=== PATIENT | female | born 1935 | race Caucasian/White ===

== ENCOUNTER 2021-01-31 23:37 | Inpatient (IN) | payer MEDICARE ==
[~2021-01-31] VITALS: Ht 165.1 cm; Wt 78.9 kg
[2021-02-01] VITALS (8 sets, daily range): BP systolic 126–159; BP diastolic 49–68
[2021-02-01] MEDS ORDERED: IV NORMAL SALINE 1000 ML BAG IV ONE (00:15)
[2021-02-01 00:18] LABS: BASOPHILS % (AUTO) 0.6 % (0.0-2.0); EOSINOPHILS # (AUTO) 0.2 K/uL (0.0-0.7); EOSINOPHILS % (AUTO) 2.7 % (0.0-7.0); HEMATOCRIT 41.9 % (31.2-41.9); HEMOGLOBIN 13.9 g/dL (10.9-14.3); LYMPHOCYTES # (AUTO) 1.2 K/uL (20.0-40.0); LYMPHOCYTES % (AUTO) 15.6 % (20.5-51.5); MEAN CORPUSCULAR HEMOGLOBIN 29.3 uug (24.7-32.8); MEAN CORPUSCULAR HGB CONC 33 g/dL (32.3-35.6); MEAN CORPUSCULAR VOLUME 88.2 fL (75.5-95.3); MONOCYTES # (AUTO) 0.6 K/uL (2.0-10.0); MONOCYTES % (AUTO) 8.6 % (0.0-11.0); NEUTROPHILS # (AUTO) 5.4 K/uL (1.8-8.9); NEUTROPHILS % (AUTO) 72.5 % (38.5-71.5); PLATELET COUNT (AUTO) 233 K/uL (179-408); RED BLOOD CELL COUNT(AUTO) 4.75 MIL/uL (3.63-4.92); WHITE BLOOD COUNT (AUTO) 7.4 K/uL (3.8-11.8)
[2021-02-01 00:57] LABS: CARBON DIOXIDE 28 mmol/L (21-32); CHLORIDE 104 mmol/L (98-107); CREATININE 1.4 mg/dL (0.6-1.3); GLUCOSE 181 mg/dL (74-106); UREA NITROGEN, BLOOD 34 mg/dL (7-18)
[2021-02-01] MEDS ORDERED: VALS80TA2 PO (00:58)
[2021-02-01] MEDS ORDERED: DEXL60CA3 PO (00:58)
[2021-02-01] MEDS ORDERED: POTA10CA43 PO (00:59)
[2021-02-01 01:02] LABS: ALANINE AMINOTRANSFERASE 24 U/L (14-59); ALKALINE PHOSPHATASE 67 U/L (50-136); ASPARTATE AMINOTRANSFERASE 17 U/L (15-37); BILIRUBIN,DIRECT 0.1 mg/dL (0.0-0.2); BILIRUBIN,TOTAL 0.3 mg/dL (0.2-1.0); TOTAL PROTEIN, SERUM 6.9 g/dL (6.4-8.2)
[2021-02-01] MEDS ORDERED: TOLT2CAP PO (01:07)
[2021-02-01] MEDS ORDERED: ROSU10TA2 PO (01:07)
[2021-02-01] MEDS ORDERED: MONT10TA33 PO (01:07)
[2021-02-01] MEDS ORDERED: MELO5CAP3 PO (01:07)
[2021-02-01] MEDS ORDERED: MIRA50TA PO (01:07)
--- NOTE | 2021-02-01 01:45 | NUR ---
Patient transferred to Room 319. VSS. All belongings with patient. No distress.
--- NOTE | 2021-02-01 02:25 | NUR ---
RECEIVED PATIENT FOR ADMISSION 85 YEARS OLD FEMALE BY W/CHAIR TO ROOM 319 WITH DX OF SYNCOPE PLACED INTO BED FIXED AND MADE COMFORTABLE PATIENT IS ALERT AND ORIENTED TO ROOM AND FACILITY PROTOCOL ON ROOM AIR WITH NO SHORTNESS OF BREATH AT THIS TIME CALL LIGHTS AND PERSONAL BELONGINGS ARE WITHIN EASY REACH MADE COMFORTABLE DR STEVENS NOTIFIED THAT PATIENT IS HERE AWAITING FOR ORDERS
[2021-02-01] MEDS ORDERED: hydrALAZINE HCL 25 MG TABLET PO PRN ×2 (06:30→09:15)
[2021-02-01] MEDS ORDERED: ONDANSETRON 4 MG/2 ML VIAL IV PRN (06:30)
[2021-02-01] MEDS ORDERED: ACETAMINOPHEN 325 MG TABLET PO PRN (06:30)
[2021-02-01] MEDS ORDERED: TEMAZEPAM 15 MG CAPSULE PO PRN (06:30)
--- NOTE | 2021-02-01 06:45 | NUR ---
AWAKE STATED SLEPT SOME DENIES DISCOMFORTS ON ROOM AIR AT THIS TIME NOT IN DISTRESS AT THIS TIME.
[2021-02-01] MEDS: PANTOPRAZOLE SODIUM 40 MG TABLET.DR PO SCH (07:10)
[2021-02-01 08:07] LABS: BASOPHILS # (AUTO) 0.1 K/uL (0.0-8.0); BASOPHILS % (AUTO) 0.8 % (0.0-2.0); EOSINOPHILS # (AUTO) 0.2 K/uL (0.0-0.7); EOSINOPHILS % (AUTO) 2.3 % (0.0-7.0); HEMATOCRIT 38.8 % (31.2-41.9); HEMOGLOBIN 12.7 g/dL (10.9-14.3); LYMPHOCYTES # (AUTO) 1.5 K/uL (20.0-40.0); LYMPHOCYTES % (AUTO) 21.2 % (20.5-51.5); MEAN CORPUSCULAR HEMOGLOBIN 28.9 uug (24.7-32.8); MEAN CORPUSCULAR HGB CONC 33 g/dL (32.3-35.6); MEAN CORPUSCULAR VOLUME 88.5 fL (75.5-95.3); MONOCYTES # (AUTO) 0.7 K/uL (2.0-10.0); MONOCYTES % (AUTO) 9.8 % (0.0-11.0); NEUTROPHILS # (AUTO) 4.6 K/uL (1.8-8.9); NEUTROPHILS % (AUTO) 65.9 % (38.5-71.5); PLATELET COUNT (AUTO) 206 K/uL (179-408); RED BLOOD CELL COUNT(AUTO) 4.38 MIL/uL (3.63-4.92); WHITE BLOOD COUNT (AUTO) 6.9 K/uL (3.8-11.8)
[2021-02-01 08:26] LABS: MAGNESIUM 1.9 mg/dL (1.8-2.4); PHOSPHOROUS 3.6 mg/dL (2.5-4.9)
[2021-02-01 08:27] LABS: THYROID STIMULATING HORMONE 1.76 mIU/mL (0.358-3.740)
[2021-02-01] MEDS: POTASSIUM CHLORIDE 10 MEQ TAB.PRT.SR PO SCH (08:43)
[2021-02-01] MEDS: VALSARTAN 80 MG TABLET PO SCH (08:43)
--- NOTE | 2021-02-01 08:48 | NUR ---
PICKED UP BY CHAIR FOR CT HEAD ORDERED DUE MEDICATIONS GIVEN AND TOLERATED WELL.
--- NOTE | 2021-02-01 09:14 | NUR ---
CARE OF THIS PATIENT ENDORSED TO ONCOMING NURSE PATIENT REMAINS ALERT ORIENTED AND ON ROOM AIR WITH NO SOB AT THIS TIME.
--- NOTE | 2021-02-01 10:30 | NUR ---
alert, oriented, appropriate. able to remember everything took place at [place], at friends's house. "hit her head against something, she said, down for CT of brain walked in the hallway with PT, gait steady NOW DNR per patient's request
--- NOTE | 2021-02-01 15:48 | NUR ---
requested a copy of CT of head, xray, and 2d Echo. ct of head, xray given, but 2d echo still pending. Will let her have a copy when result available.
--- NOTE | 2021-02-01 17:02 | NUR ---
seen by her dr this afternoon, patient will be discharged to home in am. Patient requests to leave exactly at 10am, when her ride arrives. Oncoming to make aware, and follow this up.
[2021-02-01] MEDS ORDERED: DOCUSATE SODIUM 100 MG CAPSULE PO SCH (21:00)
[2021-02-01] MEDS ORDERED: MONTELUKAST SODIUM 10 MG TABLET PO SCH (21:00)
[2021-02-01] MEDS ORDERED: ATORVASTATIN 40 MG TABLET PO SCH (21:00)
[2021-02-01] MEDS ORDERED: TOLTERODINE LA 2 MG CAP.SR.24H PO SCH (21:00)
[2021-02-02 04:00] VITALS: BP 155/62
[2021-02-02] MEDS: PANTOPRAZOLE SODIUM 40 MG TABLET.DR PO SCH (06:14)
--- NOTE | 2021-02-02 06:53 | NUR ---
Patient resting in bed. No s/s of acute distress noted at this time. Patient awaiting to go home. Per patient sister in-law will provide transportation. Safety measures in place, will endorse to oncoming nurse.
[2021-02-02 08:00] VITALS: BP 131/60
[2021-02-02 08:51] VITALS: BP 131/60
[2021-02-02] MEDS: VALSARTAN 80 MG TABLET PO SCH (08:51)
[2021-02-02] MEDS: POTASSIUM CHLORIDE 10 MEQ TAB.PRT.SR PO SCH (08:52)
--- NOTE | 2021-02-02 10:04 | NUR ---
Patient is discharged , picked up by her daughter in law, in stable condition. No s/s of distress vital signs within normal limits. All due meds given per MD order. Discharge instructions were given. Educate patient to hydrate herself well and to follow up with PCP after a week. Medication to continue were given per MD order. Belongings checked. Patient in the wheelchair picked up by daughter in law by a private car.
== END 2021-02-02 10:00 | disposition home or self-care (01) | DRG 312 ==
LOC: ER 23:38 → TELE3 02-01 02:08 → MEDSURG3 02-01 16:54
PROVIDERS: ADMIT Nurse Practitioner Family; ATTEND Nurse Practitioner Family
DX: I95.1 Orthostatic hypotension (principal); N17.9 Acute kidney failure, unspecified; E86.0 Dehydration; E86.1 Hypovolemia; I10 Essential (primary) hypertension; J45.909 Unspecified asthma, uncomplicated; Z90.710 Acquired absence of both cervix and uterus; Z96.651 Presence of right artificial knee joint; Z88.2 Allergy status to sulfonamides; R42 Dizziness and giddiness
CPT/HCPCS: 36415; 70030-TC; 70450; 71045; 83735; 84100; 84443; 85025; 93005; 93307; G0378; J7030